=== PATIENT | male | born 1950 | race Caucasian/White ===

== ENCOUNTER → 2017-04-01 | Outpatient (CLI) | payer BC ==
[~2017-04-01] MED LIST: FLV400 PO; TMPOPS15 IO
[2017-04-01 16:58] LABS: HEMATOCRIT 43.2 % (42-52); MEAN CELL VOLUME 95.4 fL (80-100); MEAN CORPUSCULAR HEMOGLOBIN 32.9 pg (25-34); MEAN CORPUSCULAR HGB CONC 34.5 g/dl (32-36); PLATELET COUNT 183 K/uL (130-400); RED BLOOD COUNT 4.53 M/uL (4.7-6.1); WHITE BLOOD COUNT 7.88 K/uL (4.8-10.8)
== END | disposition home or self-care (01) ==
LOC: C.LABBC 14:32
PROVIDERS: ATTEND Internal Medicine
DX: Z00.00 Encounter for general adult medical examination without abnormal findings (principal); E72.11 Homocystinuria; Z11.59 Encounter for screening for other viral diseases

== ENCOUNTER 2017-08-02 13:06 | Inpatient (IN) | payer BC, OTHER ==
[~2017-08-02] VITALS: Ht 175.3 cm; Wt 98.5 kg
[~2017-08-02 13:06] MED LIST changes: -APIX1TAB3 PO; -ASPI325T39 PO; -TPRSR/50 PO
[2017-08-02] MEDS ORDERED: SODIUM CHLORIDE 0.9% 1000ML 2,000 ML IV STA (13:15)
[2017-08-02 13:53] LABS: BASO % 0.4 %; BASO ABS # 0.02 K/uL (0-0.2); EOS % 2.1 %; EOS ABS # 0.11 K/uL (0-0.5); HEMATOCRIT 46.2 % (42-52); HEMOGLOBIN 16.1 g/dL (14.0-18.0); IG# 0.01 K/uL (0.00-0.02); LYMPH % 23.5 %; LYMPH ABS # 1.23 K/uL (1.2-3.4); MEAN CORPUSCULAR HEMOGLOBIN 33.5 pg (25-34); MEAN CORPUSCULAR HGB CONC 34.8 g/dl (32-36); MEAN PLATELET VOLUME 9.6 fL (7.4-10.4); MONO % 9.9 %; MONO ABS # 0.52 K/uL (0.11-0.59); NEUT % 63.9 %; NEUT ABS # 3.35 K/uL (1.4-6.5); PLATELET COUNT 160 K/uL (130-400); RED CELL DISTRIBUTION WIDTH CV 13.8 % (11.5-14.5); RED CELL DISTRIBUTION WIDTH SD 48.7 fL (36.4-46.3); WHITE BLOOD COUNT 5.24 K/uL (4.8-10.8)
--- NOTE | 2017-08-02 13:53 | DIAGNOSTIC IMAGING REPORT ---
CHEST ONE VIEW PORTABLE HISTORY: Atypical Chest Pain COMPARISON: Chest 12/11/2014. FINDINGS: The lungs are clear. Cardiac silhouette is normal in size. No pleural effusions. No pneumothorax. IMPRESSION: No acute process. Electronically signed by: César Mendoza M.D. 08/02/2017 1:51 PM Dictated Date/Time: 08/02/2017 1:49 PM
[2017-08-02 14:10] LABS: BLOOD UREA NITROGEN 11 mg/dl (7-18); CALCIUM 9.2 mg/dl (8.5-10.1); CARBON DIOXIDE 27 mmol/L (21-32); GLUCOSE 95 mg/dl (70-99); POTASSIUM 3.7 mmol/L (3.5-5.1); SODIUM 138 mmol/L (136-145)
[2017-08-02 14:15] LABS: CKMB 2.2 ng/ml (0.5-3.6)
[2017-08-02] MEDS ORDERED: DILTIAZEM BOLUS / DRIP IV STA ×2 (14:35→18:21)
[2017-08-02] MEDS ORDERED: DILTIAZEM HCL INJ 125 MG in DEXTROSE 5% 100ML IV PRN ×2 (14:45→18:45)
[2017-08-02] MEDS ORDERED: ASPI325T39 PO (14:48)
[2017-08-02] MEDS ORDERED: DILTIAZEM BOLUS FROM BAG IV ONE (15:00)
[2017-08-02] MEDS ORDERED: ONDANSETRON INJ 2 MG/ML 2 ML VIAL IV PRN (16:30)
[2017-08-02] MEDS ORDERED: POLYETHYLENE (MIRALAX) 17 GM PACK PO PRN (16:30)
[2017-08-02] MEDS ORDERED: ENOXAPARIN 40 MG/0.4 ML SYR SC SCH ×2 (16:30→21:00)
[2017-08-02] MEDS ORDERED: ACETAMINOPHEN 325 MG TAB PO PRN (16:30)
--- NOTE | 2017-08-02 16:41 | History and Physical ---
History & Physical Date & Time of Service: Aug 02, 2017 at 16:34 Chief Complaint: new onset AF Primary Care Physician: Kerrie Mcdaniels M.D. History of Present Illness Source: patient, family This is a 67 yo M with PMHx of HTN, HLD, homocysteinemia w hx of DVT on b12 and folic acid, etoh use of 3 drinks daily, remote smoking hx 31 yrs ago with 1 pppd x 10 yrs.. The patient reports being here for a routine colonoscopy with Dr. Hunt. At that time his vitals were checked and noted to have high rate, and EKG was conducted showing afib with RVR with max HR in the 160s. The patient was sent to the ER for management. He is asymptomatic and denies any acute complaints other than being hungry. He denies any other cardiac history. PT does not take blood thinner with his hx of homocysteinemia. He routinely exercises with cardio/weights/resistance training for 30-45 min daily. EKG showing afib with RVR with rate in 110s-120s, was placed on a diltiazem bolus/gtt. CBC and PRP are WNL. Past Medical/Surgical History Medical Problems: (1) DVT (deep venous thrombosis) (2) HLD (hyperlipidemia) (3) Homocysteinemia (4) HTN, goal below 140/80 (5) new onset afib with rvr Social History Smoking Status: Former Smoker Smokeless Tobacco Use: No Alcohol Use: heavy (3 liquor drinks daily) Drug Use: none Marital Status: Housing status: lives with family Occupational Status: retired Immunizations History of Influenza Vaccine: Yes Influenza Vaccine Date: May 29, 2006 History of Tetanus Vaccine?: Yes History of Pneumococcal: No History of Hepatitis B Vaccine: No Multi-Drug Resistant Organisms History of MDRO: No Allergies Coded Allergies: No Known Allergies (Verified , 08/02/17) Home Medications Scheduled Acetylcysteine (Nutrient) (T-Gdewgo-D-Cysteine), 1 CAP PO DAILY Arginine (L-Arginine), 1 CAP PO DAILY Ascorbic Acid (Vitamin C), 1 TAB PO DAILY Aspirin (Aspirin Ec), 325 MG PO HS B-Complex Vitamins (Vitamin B Complex), 1 TAB PO DAILY Cholecalciferol (Vitamin D), 1,000 INTER.UNIT PO BID Coenzyme Q10 (Ubidecarenone) (Co Q10), 1 TAB PO DAILY Cyanocobalamin (Vitamin B-12), 1,000 MCG PO DAILY Ferrous Sulfate (Iron), 1 TAB PO DAILY Fish Oil ([place]-3), 1 CAP PO DAILY Folic Acid (Folvite), 1 MG PO DAILY Niacin (Niacin), 50 MG PO BID Selenium-Yeast (Selenium), 1 TAB PO DAILY Review of Systems Constitutional: No fever, No chills, No sweats, No weight loss, No weakness Eyes: No redness, No diplopia ENT: No sore throat Respiratory: No cough, No sputum, No wheezing, No shortness of breath, No dyspnea on exertion Cardiovascular: No chest pain, No orthopnea, No edema, No palpitations Abdomen: No pain, No nausea, No vomiting, No diarrhea Musculoskeletal: No joint pain, No swelling Neurologic: No memory loss, No numbness/tingling Psychiatric: No depression symptoms, No anxiety Endocrine: No fatigue Integumentary: No rash, No itch Physical Exam Vital Signs Date Time Temp Pulse Resp B/P (MAP) Pulse Ox O2 Delivery O2 Flow Rate FiO2 08/02/17 15:30 94 16 139/96 97 Room Air 08/02/17 15:11 104 20 151/99 98 Room Air 08/02/17 13:17 104 08/02/17 13:13 97 Room Air 08/02/17 13:13 97 Room Air 08/02/17 13:13 37.3 111 20 181/112 97 Room Air General Appearance: WD/WN, no apparent distress, + obese Head: normocephalic, atraumatic Eyes: PERRL, EOMI ENT: hearing grossly normal, pharynx normal Neck: supple, no adenopathy, no JVD Respiratory/Chest: chest non-tender, lungs clear, no respiratory distress, no accessory muscle use Cardiovascular: regular rate, rhythm, no murmur, normal peripheral pulses Abdomen/GI: normal bowel sounds, non tender, soft Back: normal inspection, no CVA tenderness Extremities/Musculoskelatal: normal inspection, no calf tenderness, no pedal edema Neurologic/Psych: alert, normal mood/affect, oriented x 3 Skin: normal color, warm/dry Diagnostics Laboratory Results Results Past 24 Hours Test 08/02/17 13:30 Range/Units White Blood Count 5.24 4.8-10.8 K/uL Red Blood Count 4.81 4.7-6.1 M/uL Hemoglobin 16.1 14.0-18.0 g/dL Hematocrit 46.2 42-52 % Mean Corpuscular Volume 96.0 80-100 fL Mean Corpuscular Hemoglobin 33.5 25-34 pg Mean Corpuscular Hemoglobin Concent 34.8 32-36 g/dl Platelet Count 160 130-400 K/uL Mean Platelet Volume 9.6 7.4-10.4 fL Neutrophils (%) (Auto) 63.9 % Lymphocytes (%) (Auto) 23.5 % Monocytes (%) (Auto) 9.9 % Eosinophils (%) (Auto) 2.1 % Basophils (%) (Auto) 0.4 % Neutrophils # (Auto) 3.35 1.4-6.5 K/uL Lymphocytes # (Auto) 1.23 1.2-3.4 K/uL Monocytes # (Auto) 0.52 0.11-0.59 K/uL Eosinophils # (Auto) 0.11 0-0.5 K/uL Basophils # (Auto) 0.02 0-0.2 K/uL RDW Standard Deviation 48.7 36.4-46.3 fL RDW Coefficient of Variation 13.8 11.5-14.5 % Immature Granulocyte % (Auto) 0.2 % Immature Granulocyte # (Auto) 0.01 0.00-0.02 K/uL Sodium Level 138 136-145 mmol/L Potassium Level 3.7 3.5-5.1 mmol/L Chloride Level 104 98-107 mmol/L Carbon Dioxide Level 27 21-32 mmol/L Anion Gap 7.0 3-11 mmol/L Blood Urea Nitrogen 11 7-18 mg/dl Creatinine 0.80 0.60-1.40 mg/dl Est Creatinine Clear Calc Drug Dose 106.6 ml/min Estimated GFR () 108.7 Estimated GFR (Non- 93.7 BUN/Creatinine Ratio 14.2 10-20 Random Glucose 95 70-99 mg/dl Calcium Level 9.2 8.5-10.1 mg/dl Total Creatine Kinase 96 39-308 U/L Creatine Kinase MB 2.2 0.5-3.6 ng/ml Creatine Kinase MB Ratio 2.3 0-3.0 Troponin I < 0.015 0-0.045 ng/ml Diagnostic Radiology CHEST ONE VIEW PORTABLE HISTORY: Atypical Chest Pain COMPARISON: Chest 12/11/2014. FINDINGS: The lungs are clear. Cardiac silhouette is normal in size. No pleural effusions. No pneumothorax. IMPRESSION: No acute process. Electronically signed by: César Mendoza M.D. 08/02/2017 1:51 PM Dictated Date/Time: 08/02/2017 1:49 PM The status of this report is Signed. EKG Atrial fibrillation with rapid ventricular response Left axis deviation Low voltage QRS Possible Inferior infarct (cited on or before 02-AUG-2017) Cannot rule out Anterior infarct , age undetermined Abnormal ECG Vent. rate 106 BPM SC interval * ms QRS duration 88 ms QT/QTc 292/387 ms P-R-T axes * -31 5 Impression Assessment and Plan This is a 67 yo M with PMHx of HTN, HLD, homocysteinemia w hx of DVT on b12 and folic acid, etoh use of 3 drinks daily, remote smoking hx 31 yrs ago with 1 pppd x 10 yrs.. The patient reports being here for a routine colonoscopy with Dr. Hunt. At that time his vitals were checked and noted to have high rate, and EKG was conducted showing afib with RVR with max HR in the 160s. New onset Afib with RVR - Admit to tele - Continue on cardizem gtt which was started in the ER - Not on any antihypertensives for hx of HTN - this has been diet and exercise controlled - Cardiology consult for new onset - Initial troponin neg, trend x 2 more sets - Check echocardiogram - Pt allowed heart healthy diet - colonoscopy will need to be rescheduled as outpt Homocysteinemia - Cont B12 and folic acid HLD - Continue with diet therapy, check lipid panel with am labs DVT ppx: lovenox, teds, scds CODE STATUS: FULL code Disposition: From home, lives with . Level of Care Telemetry Resuscitation Status FULL RESUSCITATION VTE Prophylaxis VTE Risk Assessment Done? Y/N: Yes Risk Level: Low Given or contraindicated: Enoxaparin (Lovenox)SQ, T.E.D. Stockings, SCD's Reviewed: Pt Seen/Exam by Me History Physician Microscopist Supervision Note: I interviewed and examined the patient. Discussed with MARIA DE JESUS Jack and agree with findings and plan as documented in the note. Any exceptions or clarifications are listed here: Patient admitted after incidental finding of rapid atrial fibrillation when he arrived for his routine colonoscopy today. EKG was performed by anesthesiology and found to be in rapid A. fib. The patient denies any heart palpitations, no shortness of breath or chest pain. No prior history of atrial fibrillation. He does have history of hypertension for which he was previously on medication, but it was Discontinued by his PCP a few years back. He was hypertensive on arrival, but blames that on the stress of the situation. He does note that at his doctor's office, he has been noted to have an elevated heart rate in the past, but was not told that he had atrial fibrillation. He denies any history of significant bleeding except for occasional blood from hemorrhoids. Vitals reviewed NAD, AAO 3 Irregularly irregular, normal rate at the time I saw him, no MGR Lungs clear to auscultation bilaterally, no wheezes crackles or rhonchi Abdomen positive bowel sounds soft nontender nondistended no abdominal bruits Extremities no edema, 2+ dorsalis pedis pulses Laboratory values reviewed ECG reviewed with rapid atrial fibrillation, no acute ischemic changes Chest x-ray normal 67-year-old male with history of hypertension, hyper-homocystinemia with DVT, hyperlipidemia, here with new onset rapid atrial fibrillation. This possibly could've been triggered by his recent bowel prep/dehydration, however he was noted to be tachycardic in the office back in May 2017 as well. -his [id number] score = 2 given age and HTN history which gives him a 2.9% annual risk of TIA/CVA/thromboembolism and he should be anticoagulated -We will increase Lovenox to 1 mmg/kg SQ every 12h for now, and decide upon further anticoagulation after consultation with cardiology tomorrow -Check echocardiogram -Continue diltiazem drip started in the ER, will likely switch to by mouth AV agatha blocking agent in the morning -Appreciate cardiology consult as to whether to rate control, rhythm control, and evaluation for cardioversion if he does not convert Documented By: Daxa Mueller
[2017-08-02 18:05] VITALS: BP 144/76; PULSE 96; TEMP 37.2; O2SAT 96; Ht 175.3 cm; Wt 98.5 kg
[2017-08-02 18:26] LABS: INR 1.1 (0.9-1.1); PTT PATIENT 24.5 SECONDS (21.0-31.0)
[2017-08-02 19:28] VITALS: BP 122/74; PULSE 98; TEMP 36.5; O2SAT 96
--- NOTE | 2017-08-02 19:28 | EMERGENCY ROOM VISIT NOTE ---
History Report prepared by Didi: Blake Mcmillan Under the Supervision of: Dr. Merrick Ybarra D.O. First contact with patient: 13:07 Chief Complaint: CARDIAC ASSESSMENT Stated Complaint: new onset AF History of Present Illness The patient is a 67 year old male who presents to the Emergency Room with complaints of new onset atrial fibrillation. He was receiving a colonoscopy when he was found to have an persistent irregular heart rhythm. His heart rate was found to be in the 130's as well. The patient had his colonoscopy for two bouts of abnormal diarrhea. His most recent colonoscopy was a few years ago which was normal. Pt denies headache, change in vision, fevers, chest pain, shortness of breath, nausea, vomiting, pain with urination, and melena. He has no history of A-fib. He has a previous history of DVT five years ago, but is not on chronic blood thinners. Source of History: patient Onset: Just prior to arrival Symptom Intensity: heart rate in 130's Quality: other (New onset A-fib) Timing: other (persistent) Associated Symptoms: + diarrhea, No fevers, No headache, No chest pain, No SOB, No nausea, No vomiting, No urinary symptoms Review of Systems See HPI for pertinent positives & negatives. A total of 10 systems reviewed and were otherwise negative. Past Medical & Surgical Medical Problems: (1) DVT (deep venous thrombosis) (2) HLD (hyperlipidemia) (3) Homocysteinemia (4) HTN, goal below 140/80 (5) new onset afib with rvr Family History No pertinent family history stated. Social History Smoking Status: Former Smoker Marital Status: Current/Historical Medications Scheduled Acetylcysteine (Nutrient) (L-Krlsqo-X-Cysteine), 1 CAP PO DAILY Arginine (L-Arginine), 1 CAP PO DAILY Ascorbic Acid (Vitamin C), 1 TAB PO DAILY Aspirin (Aspirin Ec), 325 MG PO HS B-Complex Vitamins (Vitamin B Complex), 1 TAB PO DAILY Cholecalciferol (Vitamin D), 1,000 INTER.UNIT PO BID Coenzyme Q10 (Ubidecarenone) (Co Q10), 1 TAB PO DAILY Cyanocobalamin (Vitamin B-12), 1,000 MCG PO DAILY Ferrous Sulfate (Iron), 1 TAB PO DAILY Fish Oil ([place]-3), 1 CAP PO DAILY Folic Acid (Folvite), 1 MG PO DAILY Niacin (Niacin), 50 MG PO BID Selenium-Yeast (Selenium), 1 TAB PO DAILY Allergies Coded Allergies: No Known Allergies (Verified , 08/02/17) Physical Exam Vital Signs Date Time Temp Pulse Resp B/P (MAP) Pulse Ox O2 Delivery O2 Flow Rate FiO2 08/02/17 15:30 94 16 139/96 97 Room Air 08/02/17 15:11 104 20 151/99 98 Room Air 08/02/17 13:17 104 08/02/17 13:13 97 Room Air 08/02/17 13:13 97 Room Air 08/02/17 13:13 37.3 111 20 181/112 97 Room Air Physical Exam GENERAL: Sitting up in bed, alert, well appearing, well nourished, no distress, non-toxic EYE EXAM: normal conjunctiva. PERRL and EOM's intact. OROPHARYNX: no exudate, no erythema, lips, buccal mucosa, and tongue normal and mucous membranes are moist NECK: supple, no nuchal rigidity, no adenopathy, non-tender LUNGS: Clear to auscultation. Normal chest wall mechanics HEART: Tachycardic rate with an irregularly irregular rhythm. No murmurs, S1 normal and S2 normal ABDOMEN: abdomen soft, non-tender, normo-active bowel sounds, no masses, no rebound or guarding. BACK: Back is symmetrical on inspection and there is no deformity, no midline tenderness, no CVA tenderness. SKIN: no rashes and no bruising UPPER EXTREMITIES: upper extremities are grossly normal. LOWER EXTREMITIES: Calves are equal bilaterally. NEURO EXAM: Normal sensorium, cranial nerves II-XII grossly intact, normal speech, no gross weakness of arms, no gross weakness of legs. Medical Decision & Procedures ER Provider Diagnostic Interpretation: Radiology results as stated below per my review and the radiologist's interpretation: CHEST ONE VIEW PORTABLE FINDINGS: The lungs are clear. Cardiac silhouette is normal in size. No pleural effusions. No pneumothorax. IMPRESSION: No acute process. Electronically signed by: César Mendoza M.D. 08/02/2017 1:51 PM Laboratory Results 08/02/17 13:30 Red Blood Count 4.81, Mean Corpuscular Volume 96.0, Mean Corpuscular Hemoglobin 33.5, Mean Corpuscular Hemoglobin Concent 34.8, Mean Platelet Volume 9.6, Neutrophils (%) (Auto) 63.9, Lymphocytes (%) (Auto) 23.5, Monocytes (%) (Auto) 9.9, Eosinophils (%) (Auto) 2.1, Basophils (%) (Auto) 0.4, Neutrophils # (Auto) 3.35, Lymphocytes # (Auto) 1.23, Monocytes # (Auto) 0.52, Eosinophils # (Auto) 0.11, Basophils # (Auto) 0.02 08/02/17 13:30 Test 08/02/17 13:30 White Blood Count 5.24 K/uL (4.8-10.8) Red Blood Count 4.81 M/uL (4.7-6.1) Hemoglobin 16.1 g/dL (14.0-18.0) Hematocrit 46.2 % (42-52) Mean Corpuscular Volume 96.0 fL (80-100) Mean Corpuscular Hemoglobin 33.5 pg (25-34) Mean Corpuscular Hemoglobin Concent 34.8 g/dl (32-36) Platelet Count 160 K/uL (130-400) Mean Platelet Volume 9.6 fL (7.4-10.4) Neutrophils (%) (Auto) 63.9 % Lymphocytes (%) (Auto) 23.5 % Monocytes (%) (Auto) 9.9 % Eosinophils (%) (Auto) 2.1 % Basophils (%) (Auto) 0.4 % Neutrophils # (Auto) 3.35 K/uL (1.4-6.5) Lymphocytes # (Auto) 1.23 K/uL (1.2-3.4) Monocytes # (Auto) 0.52 K/uL (0.11-0.59) Eosinophils # (Auto) 0.11 K/uL (0-0.5) Basophils # (Auto) 0.02 K/uL (0-0.2) RDW Standard Deviation 48.7 fL (36.4-46.3) RDW Coefficient of Variation 13.8 % (11.5-14.5) Immature Granulocyte % (Auto) 0.2 % Immature Granulocyte # (Auto) 0.01 K/uL (0.00-0.02) Prothrombin Time 11.4 SECONDS (9.0-12.0) Prothromb Time International Ratio 1.1 (0.9-1.1) Activated Partial Thromboplast Time 24.5 SECONDS (21.0-31.0) Partial Thromboplastin Ratio 0.9 Anion Gap 7.0 mmol/L (3-11) Est Creatinine Clear Calc Drug Dose 106.6 ml/min Estimated GFR () 108.7 Estimated GFR (Non- 93.7 BUN/Creatinine Ratio 14.2 (10-20) Calcium Level 9.2 mg/dl (8.5-10.1) Total Creatine Kinase 96 U/L (39-308) Creatine Kinase MB 2.2 ng/ml (0.5-3.6) Creatine Kinase MB Ratio 2.3 (0-3.0) Troponin I < 0.015 ng/ml (0-0.045) Triglycerides Level 70 mg/dl (0-150) Cholesterol Level 260 mg/dl (0-200) HDL Cholesterol 124 mg/dl LDL Cholesterol, Calculated 122 mg/dl VLDL Cholesterol, Calculated 14 mg/dl Cholesterol/HDL Ratio 2.1 Laboratory results per my review. Medications Administered Medications (Trade) Dose Ordered Sig/Roxy Route Start Time Stop Time Status Last Admin Dose Admin Sodium Chloride 2,000 ml @ 999 mls/hr Q2H1M STAT IV 08/02/17 13:15 08/02/17 15:15 DC 08/02/17 13:36 999 MLS/HR Diltiazem HCl (Cardizem Bolus From Bag) 10 mg ONE ONCE IV 08/02/17 15:00 08/02/17 15:02 DC 08/02/17 15:00 5 MG Diltiazem HCl 125 mg/Dextrose 125 ml @ 0 mls/hr Q0M PRN IV 08/02/17 14:45 08/02/17 18:34 DC 08/02/17 15:10 5 MLS/HR ECG Indication: other (new onset A-fib) Rate (beats per minute): 106 Rhythm: atrial fibrillation (RVR) Findings: left axis deviation, no ectopy ED Course ED COURSE: Vital signs were reviewed and showed hypertension The patients medical record was reviewed The above diagnostic studies were performed and reviewed. ED treatments and interventions as stated above. 1308: The patient was evaluated in room C2B. A complete history and physical examination was performed. 1315: Ordered Sodium Chloride 2000 ml @ 999 mls/hr IV. 1433: I reassessed the patient. His heart rate has increased from 105 to 150 bpm. 1440: Upon reevaluation, the patient is resting comfortably. I discussed my findings with the patient and he understands and agrees with the treatment plan. Based on the patients age, coexisting illnesses, exam and lab findings the decision to treat as an inpatient was made. The patient remained stable while under my care. The patient will be evaluated for further management. Medical Decision Differential Diagnosis includes but is not limited to dehydration, stroke, anemia, hypoglycemia, hyponatremia, hypernatremia, urinary tract infection, pneumonia, bronchitis, sepsis, gastroenteritis, additional abdominal pathology, metabolic abnormalities and infections. Patient is a 67-year-old female who presents to ER referred in by anesthesia as he was set to have a colonoscopy. He was found to be in A. fib with RVR. He has no complaints. On evaluation his heart rate goes from 110s to 150s. EKG shows no ischemia. He is asymptomatic. Uncertain of how long this has been present for question if secondary to bowel prep. Patient was given 2 L normal saline. Heart rate did trend down but was still fairly variable. At this time he is placed on Cardizem drip and given a bolus. Following this heart rate remained in the low 100s. Discussed with internal medicine. Patient was admitted with A. fib and RVR. Medication Reconcilliation Current Medication List: was personally reviewed by me Blood Pressure Screening Patient's blood pressure: Elevated blood pressure Blood pressure disposition: Referred to PCP Consults Time Called: 1440 Consulting Physician: Dr. Ervin GODINEZ Hospitalist Returned Call: [phone] I reviewed the patient's case with Dr. Mueller. BOBBI will evaluate the patient for further management. Impression Primary Impression: Atrial fibrillation with rapid ventricular response Critical Care I have personally spent 35 minutes of critical care time in the direct management of this patient. This includes bedside care, interpretation of diagnostic studies, and testing, discussion with consultants, patient, and family members, and other required patient management activities. This 35 minutes is in excess of all separately billable procedures. Scribe Attestation The scribe's documentation has been prepared under my direction and personally reviewed by me in its entirety. I confirm that the note above accurately reflects all work, treatment, procedures, and medical decision making performed by me. Departure Information Dispostion Being Evaluated By Hospitalist Referrals Kerrie Mcdaniels M.D. (PCP) Patient Instructions My [facility]
[2017-08-02] MEDS: CHOLECALCIFEROL 1000 INTER.UNIT TAB PO SCH (20:38)
[2017-08-02] MEDS ORDERED: ENOXAPARIN 60 MG/0.6 ML SYR SQ ONE (23:45)
[2017-08-03 00:12] VITALS: BP 137/81; PULSE 72; TEMP 36.8; O2SAT 97
[2017-08-03 03:33] VITALS: BP 141/76; PULSE 86; TEMP 37; O2SAT 94
[2017-08-03 05:30] LABS: BASO % 0.2 %; BASO ABS # 0.01 K/uL (0-0.2); EOS ABS # 0.15 K/uL (0-0.5); HEMATOCRIT 42.6 % (42-52); HEMOGLOBIN 14.9 g/dL (14.0-18.0); IG# 0.01 K/uL (0.00-0.02); LYMPH % 27.9 %; LYMPH ABS # 1.41 K/uL (1.2-3.4); MEAN CELL VOLUME 96.8 fL (80-100); MEAN CORPUSCULAR HEMOGLOBIN 33.9 pg (25-34); MEAN PLATELET VOLUME 9.4 fL (7.4-10.4); MONO % 11.9 %; NEUT % 56.8 %; NEUT ABS # 2.87 K/uL (1.4-6.5); PLATELET COUNT 148 K/uL (130-400); RED CELL DISTRIBUTION WIDTH CV 13.7 % (11.5-14.5); RED CELL DISTRIBUTION WIDTH SD 48.9 fL (36.4-46.3); WHITE BLOOD COUNT 5.05 K/uL (4.8-10.8)
[2017-08-03 06:08] LABS: BLOOD UREA NITROGEN 13 mg/dl (7-18); CALCIUM 8.6 mg/dl (8.5-10.1); CARBON DIOXIDE 27 mmol/L (21-32); CREATININE 0.84 mg/dl (0.60-1.40); GLUCOSE 94 mg/dl (70-99); POTASSIUM 3.7 mmol/L (3.5-5.1); SODIUM 141 mmol/L (136-145)
[2017-08-03 07:30] VITALS: BP 124/77; PULSE 87; TEMP 37; O2SAT 95
[2017-08-03] MEDS: CHOLECALCIFEROL 1000 INTER.UNIT TAB PO SCH (07:44)
[2017-08-03] MEDS ORDERED: ENOXAPARIN 100 MG/1ML SYR SQ SCH (08:00)
--- NOTE | 2017-08-03 08:41 | ECHOCARDIOGRAM REPORT ---
*NOTICE TO RECEIVING [facility] This information is strictly Confidential and protected under [place] law. [place] law prohibits you from making any further disclosure of this information unless further disclosure is expressly permitted by the written consent of the person to whom it pertains or is authorized by law. A general authorization for the release of medical or other information is not sufficient for this purpose. Hospital accepts no responsibility if the information is made available to any other person, INCLUDING THE PATIENT. Interpretation Summary * Name: SHANE KAUFFMAN Study Date: 08/03/2017 06:35 AM BP: 141/76 mmHg * Patient Location: C.2T\S\S242\S\2 HR: 86 * : 1950 (M/d/yyyy) Gender: Male Height: 69 in * Age: 67 yrs Ethnicity: CA Weight: 217 lb * Ordering Physician: Collette Elizabeth * Referring Physician: Self, Referred * Performed By: Lola Frazier RDCS * * Reason For Study: Atrial Fibrillation * BSA: 2.1 m2 * -- Conclusions -- * There is mild concentric left ventricular hypertrophy. * Left ventricular systolic function is normal. * The left atrium is moderately dilated. Procedure Details * A complete two-dimensional transthoracic echocardiogram was performed (2D, M-mode, Doppler and color flow Doppler). Left Ventricle * The left ventricle is normal in size. * There is mild concentric left ventricular hypertrophy. * Ejection Fraction = 50-55%. * Left ventricular systolic function is normal. * The left ventricular wall motion is normal. Right Ventricle * The right ventricle is normal in size and function. * The right ventricular systolic function is normal as assessed by tricuspid annular plane systolic excursion (TAPSE) (normal >1.5 cm). Atria * The left atrium is moderately dilated. * Right atrial size is normal. Mitral Valve * The mitral valve anatomy is normal. * There is no mitral regurgitation noted. Tricuspid Valve * The tricuspid valve is not well visualized, but is grossly normal. * Significant tricuspid regurgitation is absent. Aortic Valve * The aortic valve is normal in structure and function. * No hemodynamically significant valvular aortic stenosis. * Trace aortic regurgitation. Great Vessels * The aortic root is normal size. Pericardium/Pleural * There is no pericardial effusion. MMode 2D Measurements and Calculations IVSd 1.6 cm IVSs 1.8 cm LVIDd 3.8 cm LVIDs 2.8 cm LVPWd 1.4 cm LVPWs 1.5 cm IVS/LVPW 1.1 FS 27.1 % EDV(Teich) 63.8 ml ESV(Teich) 29.7 ml EF(Teich) 53.5 % EDV(cubed) 56.9 ml ESV(cubed) 22.1 ml EF(cubed) 61.3 % % IVS thick 16.2 % % LVPW thick 11.1 % LV mass(C)d 209.1 grams LV mass(C)dI 97.8 grams/m\S\2 LV mass(C)s 171.9 grams LV mass(C)sI 80.4 grams/m\S\2 SV(Teich) 34.1 ml SI(Teich) 16.0 ml/m\S\2 SV(cubed) 34.9 ml SI(cubed) 16.3 ml/m\S\2 Ao root diam 3.6 cm Ao root area 10.1 cm\S\2 ACS 1.9 cm LA dimension 4.7 cm LA/Ao 1.3 LVAd ap4 28.0 cm\S\2 LVLd ap4 8.4 cm EDV(MOD-sp4) 79.0 ml EDV(sp4-el) 79.5 ml LVAs ap4 16.7 cm\S\2 LVLs ap4 6.9 cm ESV(MOD-sp4) 33.6 ml ESV(sp4-el) 34.2 ml EF(MOD-sp4) 57.5 % EF(sp4-el) 57.0 % LVAd ap2 27.7 cm\S\2 LVLd ap2 8.1 cm EDV(MOD-sp2) 79.9 ml EDV(sp2-el) 79.9 ml LVAs ap2 18.8 cm\S\2 LVLs ap2 7.5 cm ESV(MOD-sp2) 42.1 ml ESV(sp2-el) 39.6 ml EF(MOD-sp2) 47.3 % EF(sp2-el) 50.4 % LVLd %diff -2.73 % EDV(MOD-bp) 81.0 ml LVLs %diff 7.8 % ESV(MOD-bp) 38.5 ml EF(MOD-bp) 52.5 % SV(MOD-sp4) 45.4 ml SI(MOD-sp4) 21.2 ml/m\S\2 SV(MOD-sp2) 37.8 ml SI(MOD-sp2) 17.7 ml/m\S\2 SV(MOD-bp) 42.5 ml SI(MOD-bp) 19.9 ml/m\S\2 SV(sp4-el) 45.3 ml SI(sp4-el) 21.2 ml/m\S\2 SV(sp2-el) 40.2 ml SI(sp2-el) 18.8 ml/m\S\2 Doppler Measurements and Calculations MV E max sugar 105.4 cm/sec MV dec time 0.20 sec Ao V2 max 101.4 cm/sec Ao max PG 4.1 mmHg Ao max PG (full) 1.2 mmHg AI max sugar 167.6 cm/sec AI max PG 11.2 mmHg AI dec slope 50.6 cm/sec\S\2 AI P1/2t 969.0 msec LV V1 max PG 3.0 mmHg LV V1 max 86.0 cm/sec PA V2 max 84.1 cm/sec PA max PG 2.8 mmHg
[2017-08-03] MEDS ORDERED: ASCORBIC ACID 500 MG TAB PO SCH (09:00)
[2017-08-03] MEDS ORDERED: FERROUS SULFATE 325 MG TAB PO SCH (09:00)
--- NOTE | 2017-08-03 09:46 | Cardiology Consultation ---
Cardiology Consultation Date of Consultation: Aug 03, 2017. Requesting Physician: Dr. Elizabeth Reason for Consultation: New-onset atrial fibrillation Pt evaluation today including: conversation w/ patient, physical exam, lab review, review of studies, review of inpatient medication list, conversation w/ attending History of Present Illness This is a very pleasant 67-year-old gentleman who has a history of hypertension , hyperlipidemia and a history of DVT. He has remote smoking history. He presented for a routine colonoscopy and it was noted that his heart rate was somewhat elevated and electrocardiogram showed atrial fibrillation. He was then sent to the emergency room. He was completely asymptomatic. He is not taking any medications for his hypertension, in the past he had been on lisinopril but he prefers not to take medications if possible. He did have a stress echo done in 2008 for what is described as family history of coronary disease and that was unremarkable. He was admitted, he is placed on intravenous diltiazem for rate control and Lovenox as an anticoagulant. Echocardiography has been performed which shows normal left ventricular function with some left ventricular hypertrophy. At the time my evaluation this morning he was feeling well, he has had no symptoms of palpitations although when he concentrates on his rhythm he thinks he can feel any irregularity. He does note that on his last 2 visits to the office that his heart rate was elevated however an electric cardiogram was not done. I did review the office records and he was seen 04/01/2017 and 06/16/2017 and his heart rates were between 90 and little over 100 on those visits, prior to that his heart rates were typically in the 60s. It is likely his arrhythmia occurred some time before March 2017, a prior visit 09/10/2016 showed the lower heart rates and was probably not present on that visit. He has no other cardiovascular symptoms, he does not have exertional chest discomfort, no orthopnea or PND and no edema. Past Medical/Surgical History (1) DVT (deep venous thrombosis) (2) Homocysteinemia (3) HLD (hyperlipidemia) (4) HTN, goal below 140/80 Social History Smoking Status: Former Smoker History of Alcohol Use: Yes (Whiskey, beer 2 drinks per day) Review of Systems Constitutional: No fever, No weight loss, No weakness Respiratory: No cough, No wheezing, No shortness of breath, No dyspnea on exertion Cardiac: No chest pain, No orthopnea, No PND, No edema, No palpitations Abdomen: No pain, No nausea, No vomiting, No diarrhea, No GI bleeding Male : No urinary frequency, No nocturia more than once/night, No slowing stream, No sexual dysfunction Neurologic: No paralysis, No weakness, No numbness/tingling, No balance problems Heme: No abnormal bleeding/bruising, No clotting problems Endo: No fatigue Skin: No problem reported All Other Systems: Reviewed and Negative Allergies Coded Allergies: No Known Allergies (Verified , 08/02/17) Medications Current Inpatient Medications Medications (Trade) Dose Ordered Sig/Roxy Route Start Time Stop Time Status Last Admin Dose Admin Acetaminophen (Tylenol Tab) 650 mg Q4H PRN PO 08/02/17 16:30 09/01/17 16:29 Ondansetron HCl (Zofran Inj) 4 mg Q6H PRN IV 08/02/17 16:30 09/01/17 16:29 Polyethylene (Miralax Powder Packet) 17 gm DAILY PRN PO 08/02/17 16:30 09/01/17 16:29 Ascorbic Acid (Vitamin C Tab) 500 mg DAILY PO 08/03/17 09:00 09/02/17 08:59 08/03/17 07:44 500 MG Cholecalciferol (Vitamin D Tab) 1,000 inter.unit BID PO 08/02/17 21:00 09/01/17 20:59 08/03/17 07:44 1,000 INTER.UNIT Folic Acid (Folvite Tab) 1 mg DAILY PO 08/03/17 09:00 09/02/17 08:59 08/03/17 07:44 1 MG Ferrous Sulfate (Feosol Tab) 325 mg DAILY PO 08/03/17 09:00 09/02/17 08:59 08/03/17 07:44 325 MG Metoprolol Succinate (Toprol Xl Tab) 50 mg NOW STAT PO 08/03/17 09:31 08/03/17 09:32 UNV Apixaban (Eliquis Tab) 5 mg BID PO 08/03/17 21:00 09/02/17 20:59 UNV Physical Exam Vital Signs Past 12 Hours Date Time Temp Pulse Resp B/P (MAP) Pulse Ox O2 Delivery O2 Flow Rate FiO2 08/03/17 08:00 Room Air 1/17/18 07:30 37.0 87 16 124/77 (93) 95 Room Air 08/03/17 04:00 Room Air 08/03/17 03:33 37.0 86 19 141/76 (97) 94 Room Air 08/03/17 00:12 Room Air 08/03/17 00:12 36.8 72 18 137/81 (99) 97 Room Air Constitutional: General Apperance: heathly-appearing Level of Distress: NAD Psychiatric: Mental Status: active & alert Head: normocephalic Eyes: EOM: EOMI ENMT: normal ENT inspection, hearing grossly normal Neck: supple, no masses Lungs: Respiratory effort: no dyspnea, good air movement Auscultation: breath sounds normal, no wheezing Cardiovascular: Heart Auscultation: no murmurs, no rubs, no gallops, irregular rate rhythm Peripheral Pulses: Bruits: none appreciated Abdomen: Bowel Sounds: normal Inspection & Palpation: soft, no tenderness, guarding & rebound, no masses Musculoskeletal: normal strength (5/5 throughout) Extremities: no edema Neurologic: Cranial Nerves: grossly intact Sensation: grossly intact Data Laboratory Results: Last 24 Hours Test 08/02/17 13:30 08/02/17 21:33 08/03/17 05:17 White Blood Count 5.24 K/uL 5.05 K/uL Red Blood Count 4.81 M/uL 4.40 M/uL Hemoglobin 16.1 g/dL 14.9 g/dL Hematocrit 46.2 % 42.6 % Mean Corpuscular Volume 96.0 fL 96.8 fL Mean Corpuscular Hemoglobin 33.5 pg 33.9 pg Mean Corpuscular Hemoglobin Concent 34.8 g/dl 35.0 g/dl Platelet Count 160 K/uL 148 K/uL Mean Platelet Volume 9.6 fL 9.4 fL Neutrophils (%) (Auto) 63.9 % 56.8 % Lymphocytes (%) (Auto) 23.5 % 27.9 % Monocytes (%) (Auto) 9.9 % 11.9 % Eosinophils (%) (Auto) 2.1 % 3.0 % Basophils (%) (Auto) 0.4 % 0.2 % Neutrophils # (Auto) 3.35 K/uL 2.87 K/uL Lymphocytes # (Auto) 1.23 K/uL 1.41 K/uL Monocytes # (Auto) 0.52 K/uL 0.60 K/uL Eosinophils # (Auto) 0.11 K/uL 0.15 K/uL Basophils # (Auto) 0.02 K/uL 0.01 K/uL RDW Standard Deviation 48.7 fL 48.9 fL RDW Coefficient of Variation 13.8 % 13.7 % Immature Granulocyte % (Auto) 0.2 % 0.2 % Immature Granulocyte # (Auto) 0.01 K/uL 0.01 K/uL Prothrombin Time 11.4 SECONDS Prothromb Time International Ratio 1.1 Activated Partial Thromboplast Time 24.5 SECONDS Partial Thromboplastin Ratio 0.9 Sodium Level 138 mmol/L 141 mmol/L Potassium Level 3.7 mmol/L 3.7 mmol/L Chloride Level 104 mmol/L 105 mmol/L Carbon Dioxide Level 27 mmol/L 27 mmol/L Anion Gap 7.0 mmol/L 9.0 mmol/L Blood Urea Nitrogen 11 mg/dl 13 mg/dl Creatinine 0.80 mg/dl 0.84 mg/dl Est Creatinine Clear Calc Drug Dose 106.6 ml/min 101.5 ml/min Estimated GFR () 108.7 106.5 Estimated GFR (Non- 93.7 91.9 BUN/Creatinine Ratio 14.2 15.6 Random Glucose 95 mg/dl 94 mg/dl Calcium Level 9.2 mg/dl 8.6 mg/dl Total Creatine Kinase 96 U/L Creatine Kinase MB 2.2 ng/ml Creatine Kinase MB Ratio 2.3 Troponin I < 0.015 ng/ml < 0.015 ng/ml < 0.015 ng/ml Triglycerides Level 70 mg/dl Cholesterol Level 260 mg/dl HDL Cholesterol 124 mg/dl LDL Cholesterol, Calculated 122 mg/dl VLDL Cholesterol, Calculated 14 mg/dl Cholesterol/HDL Ratio 2.1 Imaging: Echocardiography shows normal left ventricular size and function, ejection fraction 50-55%. Mild concentric left ventricular hypertrophy. Moderate left atrial dilatation. No valvular abnormalities. EKG: Initial electrocardiography shows atrial fibrillation at a rate of 119 bpm , left axis deviation. A repeat electrocardiogram several hours later shows similar findings with a heart rate of 106 bpm. Telemetry reviewed: Atrial fibrillation with a rapid rate initially, quickly rate controlled and he remains in atrial fibrillation. Assessment & Plan #1. Atrial fibrillation: She has asymptomatic atrial fibrillation, based on records as noted in the history of present illness suspected started sometime in August and March 2017. I cannot pinpoint it closer than that with the data that I have. At this point I would use rate control and anticoagulation and I would plan to perform electrical cardioversion after around one month of anticoagulation. His chads-vasc score is 2, therefore I would tend to keep anticoagulation going long-term. I would like to use a beta jaxon for rate control (rather than diltiazem) due to his left ventricular hypertrophy and his hypertension. #2. Left ventricular hypertrophy: He does have left ventricular hypertrophy by echo, it is mild but is consistent with his left atrial enlargement and his hypertension. Hypertension is a likely cause of his left ventricular hypertrophy. #3. Hypertension: I think he should be on an antihypertensive but we can probably use beta-blockade for blood pressure and rate control and it may be beneficial for his left ventricular hypertrophy as well. I would continue this long-term even if we get him back into sinus rhythm for these other reasons. Thank you for allowing me to participate in his care.
[2017-08-03] MEDS ORDERED: METOPROLOL SUCC 50MG EXT REL TAB PO ONE (10:00)
[2017-08-03 11:43] VITALS: BP 118/85; PULSE 69; TEMP 36.6; O2SAT 97
[2017-08-03] MEDS ORDERED: TPRSR/50 PO (14:34)
[2017-08-03] MEDS ORDERED: APIX1TAB3 PO (14:34)
--- NOTE | 2017-08-03 14:45 | Discharge Instructions ---
Discharge Instructions Date of Service Aug 03, 2017. Admission Reason for Admission: New Onset Afib With Rvr Discharge Discharge Diagnosis / Problem: New onset atrial fibrillation with rapid ventricular response Discharge Goals Goal(s): Learn about illness, Diagnostic testing, Therapeutic intervention Activity Recommendations Activity Limitations: resume your previous activity . Instructions / Follow-Up Instructions / Follow-Up You were admitted to the hospital with an incidental finding of an irregular heart rhythm called atrial fibrillation. You were also found to have a rapid heart rate. You were initially treated with an IV medication called diltiazem to control your heart rate. You were then started on another rate control medication called metoprolol, and the IV drip was weaned off. As you are now rate controlled and asymptomatic, you are medically stable to be discharged home. Medications: *Take metoprolol succinate 50 mg by mouth daily. This is a rate control medication as well as a blood pressure medication. *Take apixaban (Eliquis) 5 mg by mouth twice a day. This a blood thinner, as atrial fibrillation increases your risk for stroke. *Continue your home medications as prescribed. Follow up: *You have been scheduled for a follow up appointment with Dr. Dasilva of cardiology on August 26 at 10:30 am. His office is at [address] [place] [address]. *You will also be scheduled to follow up with your primary care provider in about 1 week following discharge. Please seek medical attention if you experience fevers, chills, sweats, dizziness/lightheadedness, loss of consciousness, chest pain, palpitations, shortness of breath, nausea, vomiting, numbness or tingling. Current Hospital Diet Patient's current hospital diet: AHA Diet (Heart Healthy) Discharge Diet Recommended Diet: AHA Diet (Heart Healthy) Pending Studies Studies pending at discharge: no Laboratory Results Lipid Panel Test 08/02/17 13:30 Range/Units Triglycerides Level 70 0-150 mg/dl Cholesterol Level 260 H 0-200 mg/dl HDL Cholesterol 124 mg/dl Cholesterol/HDL Ratio 2.1 LDL Cholesterol, Calculated 122 mg/dl Medical Emergencies . Who to Call and When: Medical Emergencies: If at any time you feel your situation is an emergency, please call 911 immediately. . Non-Emergent Contact Non-Emergency issues call your: Primary Care Provider, Cloth Winding Supervisor Call Non-Emergent contact if: you have a fever, you have any medication questions . Past History Medical & Surgical History: (1) Atrial fibrillation with rapid ventricular response . "Provider Documentation" section prepared by Melisa Parikh. . VTE Core Measure Inpt VTE Proph given/why not?: Enoxaparin (Lovenox)SQ, T.E.D. Stockings, SCD's
[2017-08-03 14:50] VITALS: BP 118/85; PULSE 69; TEMP 36.6; O2SAT 97
--- NOTE | 2017-08-03 16:02 | Discharge Summary ---
Discharge Summary Date of Service Aug 03, 2017. Discharge Summary Admission Date: Aug 02, 2017 at 16:33 Discharge Date: Aug 03, 2017 Discharge Disposition: Home Principal Diagnosis: New onset a-fib with RVR Problems/Secondary Diagnoses: HTN, HLD, homocysteinemia with h/o DVT, ETOH use, remote smoking history Immunizations: Have You Had Influenza Vaccine: Yes Influenza Vaccine Date: May 29, 2006 History of Tetanus Vaccine?: Yes History of Pneumococcal: No History of Hepatitis B Vaccine: No Procedures: CHEST ONE VIEW PORTABLE HISTORY: Atypical Chest Pain COMPARISON: Chest 12/11/2014. FINDINGS: The lungs are clear. Cardiac silhouette is normal in size. No pleural effusions. No pneumothorax. IMPRESSION: No acute process. Echocardiogram: Interpretation Summary * Name: SHANE KAUFFMAN Study Date: 08/03/2017 06:35 AM BP: 141/76 mmHg * Patient Location: [facility]\S\S242\S\2 HR: 86 * : 1950 (M/d/yyyy) Gender: Male Height: 69 in * Age: 67 yrs Ethnicity: CA Weight: 217 lb * Ordering Physician: Collette Elizabeth * Referring Physician: Self, Referred * Performed By: Lola Frazier RDCS * * Reason For Study: Atrial Fibrillation * BSA: 2.1 m2 * -- Conclusions -- * There is mild concentric left ventricular hypertrophy. * Left ventricular systolic function is normal. * The left atrium is moderately dilated. Procedure Details * A complete two-dimensional transthoracic echocardiogram was performed (2D, M-mode, Doppler and color flow Doppler). Left Ventricle * The left ventricle is normal in size. * There is mild concentric left ventricular hypertrophy. * Ejection Fraction = 50-55%. * Left ventricular systolic function is normal. * The left ventricular wall motion is normal. Right Ventricle * The right ventricle is normal in size and function. * The right ventricular systolic function is normal as assessed by tricuspid annular plane systolic excursion (TAPSE) (normal >1.5 cm). Atria * The left atrium is moderately dilated. * Right atrial size is normal. Mitral Valve * The mitral valve anatomy is normal. * There is no mitral regurgitation noted. Tricuspid Valve * The tricuspid valve is not well visualized, but is grossly normal. * Significant tricuspid regurgitation is absent. Aortic Valve * The aortic valve is normal in structure and function. * No hemodynamically significant valvular aortic stenosis. * Trace aortic regurgitation. Great Vessels * The aortic root is normal size. Pericardium/Pleural * There is no pericardial effusion. Consultations: Cardiology Medication Reconciliation New Medications: Apixaban (Eliquis) 5 Mg Tab 5 MG PO BID for 30 Days, #60 TAB Metoprolol Succinate (Metoprolol Succinate ER) 50 Mg Tabcr 50 MG PO DAILY for 30 Days, #30 TABS Continued Medications: Acetylcysteine (Nutrient) (B-Dhermm-T-Cysteine) 600 Mg Cap 1 CAP PO DAILY Arginine (L-Arginine) 500 Mg Cap 1 CAP PO DAILY Ascorbic Acid (Vitamin C) 500 Mg Tab 1 TAB PO DAILY Aspirin (Aspirin Ec) 325 Mg Tab 325 MG PO HS B-Complex Vitamins (Vitamin B Complex) 1 Tab Tab 1 TAB PO DAILY Cholecalciferol (Vitamin D) 1,000 Unit Tab 1000 INTER.UNIT PO BID Coenzyme Q10 (Ubidecarenone) (Co Q10) 90 Mg Tab 1 TAB PO DAILY Cyanocobalamin (Vitamin B-12) 1,000 Mcg Tab 1000 MCG PO DAILY Ferrous Sulfate (Iron) 325 Mg Tab 1 TAB PO DAILY Fish Oil (Lindrith-3) 1 Ea Cap 1 CAP PO DAILY Folic Acid (Folvite) 1 Mg Tab 1 MG PO DAILY Niacin (Niacin) 50 Mg Tab 50 MG PO BID Selenium-Yeast (Selenium) 1 Tab Tab 1 TAB PO DAILY Discharge Exam Patient reports feeling well. He denies any palpitations, chest pain, shortness of breath, or fatigue. The patient denies fevers, chills, sweats, chest pain, palpitations, claudication, cough, wheezing, shortness of breath, nausea, vomiting, abdominal pain, dysuria, hematuria, urinary retention, paralysis, weakness, numbness and tingling. Constitutional: No fever, No chills, No sweats Eyes: No worsening of vision, No eye pain, No diplopia ENT: No hearing loss, No nasal symptoms, No trouble swallowing Respiratory: No cough, No wheezing, No shortness of breath Cardiovascular: No chest pain, No claudication, No palpitations Abdomen: No pain, No nausea, No vomiting Musculoskeletal: No joint pain, No muscle pain, No swelling Genitourinary - Male: No dysuria, No urinary retention, No hematuria Neurologic: No paralysis, No weakness, No numbness/tingling Integumentary: No rash, No itch, No color change General appearance: +Obese. Well-developed, well-nourished, no apparent distress Head: Normocephalic, atraumatic Eyes: Normal inspection, PERRL, EOMI ENT: Normal ENT inspection, hearing grossly normal, pharynx normal Neck: Supple, no JVD, trachea midline Respiratory/Chest: Lungs clear to auscultation, normal breath sounds, no respiratory distress Cardiovascular: +Irregularly irregular, rate controlled. No gallop, no murmur Abdomen/GI: Normal bowel sounds, non-tender, soft Extremities/Musculoskeletal: Normal inspection, no calf tenderness, no pedal edema Neurological/Psych: Alert, normal mood/affect, oriented x 3 Skin: Normal color, warm/dry, no rash Hospital Course 67 y/o male with a history of HTN, HLD, homocysteinemia with h/o DVT on b12 and folic acid, ETOH use, and remote smoking history who presents after being incidentally found to be in a-fib with RVR. Pt had come for a routine colonoscopy and when vitals were checked was tachycardic. EKG revealed a-fib with RVR. No known prior history. New onset Afib with RVR--improving, now rate controlled - Admit to tele. No acute events overnight. Pt in a-fib with HR 70s-90s overnight, 100s-110s in the morning - Cardiology consulted, appreciate recs: Start metoprolol succinate 50 mg and wean off diltiazem drip. If rates are controlled in the afternoon with ambulation, can discharge home. [id number] score 2, should be anticoagulated long-term. Start Eliquis BID. - D/C with metoprolol succinate 50 mg PO qd, Eliquis 5 mg PO BID - D/C dilt drip - Echo shows LVEF 50-55%, no wall motion abnormalities, mild concentric LVH - Rate controlled on metropolol after diltiazem drip stopped, tolerating medication well, ambulating w/o difficulty or tachycardia HTN--stable -Continue metoprolol as above. Cardiology recommends staying on BB even if converts back to sinus rhythm given his left ventricular hypertrophy on echo HLD--stable - Continue heart healthy diet, fish oil, niacin, CoQ10 - Total cholesterol 260, HDL 124, non-HDL 136 Homocysteinemia--stable - Cont B12 and folic acid DVT prophylaxis -Enoxaparin 1 mg/kg SC q12h while inpt, d/c with Eliquis -ROCHELLE baird and SCDs Code Status -Level I, FULL RESUSCITATION STATUS Total Time Spent: Greater than 30 minutes This includes examination of the patient, discharge planning, medication reconciliation, and communication with other providers. Discharge Instructions Please refer to the electronic Patient Visit Report (Discharge Instructions) for additional information. Additional Copies To Kerrie Mcdaniels M.D.
[2017-08-03] MEDS ORDERED: APIXABAN 2.5 MG TAB PO SCH (21:00)
== END 2017-08-03 15:30 | disposition home or self-care (01) | DRG 309 ==
LOC: EDBD 13:06 → C.EDC 13:09 → C.2T 16:33 → ENRESERV 16:52
PROVIDERS: ADMIT Family Medicine; ATTEND Hospitalist
DX: I48.91 Unspecified atrial fibrillation (principal); E72.11 Homocystinuria; E78.5 Hyperlipidemia, unspecified; I10 Essential (primary) hypertension; Z79.82 Long term (current) use of aspirin; Z86.718 Personal history of other venous thrombosis and embolism; Z87.891 Personal history of nicotine dependence; F10.10 Alcohol abuse, uncomplicated

== ENCOUNTER → 2017-08-02 | Day surgery (SDC) | payer BC ==
[2017-07-20 10:06] VITALS: Ht 175.3 cm; Wt 97.7 kg
[~2017-08-02] VITALS: Ht 175.3 cm; Wt 97.7 kg
[~2017-08-02] MED LIST changes: +ACET1CAP16 PO; +APIX1TAB3 PO; +ARGI1CAP2 PO; +ASCA500 PO; +ASPI325T39 PO; +B-COTAB18 PO; +CHOL100010 PO; +COEN90TA PO; +CYAN10005 PO; +FERR1TAB23 PO; -FLV400 PO; +FOLI1TAB8 PO; +NIAC50TA9 PO; +OMEG10007 PO; +SELE1TAB5 PO; -TMPOPS15 IO; +TPRSR/50 PO
[2017-08-02 12:15] VITALS: BP 128/83; PULSE 130; TEMP 36.6
--- NOTE | 2017-08-02 12:49 | Progress Note ---
Progress Note Date of Service Aug 02, 2017. Progress Note Pt is a 67 yo man who is scheduled today for a routine screening colonoscopy with Dr. Hunt. Pt's PMH includes h/o DVT, BPH and glaucoma. Pt denies any history of heart problems. During preop, pt was found to have an irregular heart rate. Pt was put on the monitor and HR was noted to be as high as 139. BP was 128/83. Pt was asymptomatic. 12 lead EKG done showing AFib with RVR at 119bpm. Discussed with Dr. Hunt and decision was made to cancel the colonoscopy due to the new onset Afib with RVR and to send patient to ED to get worked up. ED was called and patient is assigned to room C2.
== END | disposition home or self-care (01) ==
LOC: C.GI 10:49
PROVIDERS: ATTEND Internal Medicine
DX: Z12.11 Encounter for screening for malignant neoplasm of colon (principal); Z53.09 Procedure and treatment not carried out because of other contraindication

== ENCOUNTER → 2018-02-27 | Outpatient (CLI) | payer BC ==
[~2018-02-27] MED LIST changes: -ASCA500 PO; +ASCO100061 PO; +NIAC500T11 PO; -NIAC50TA9 PO; -OMEG10007 PO; +TPRSR/50 PO
[2018-02-27 11:13] LABS: BASO % 0.4 %; BASO ABS # 0.02 K/uL (0-0.2); EOS % 3.4 %; EOS ABS # 0.17 K/uL (0-0.5); HEMATOCRIT 43.8 % (42-52); LYMPH % 28.3 %; MEAN CELL VOLUME 97.6 fL (80-100); MEAN CORPUSCULAR HEMOGLOBIN 33.4 pg (25-34); MEAN CORPUSCULAR HGB CONC 34.2 g/dl (32-36); MEAN PLATELET VOLUME 10.1 fL (7.4-10.4); MONO % 12.1 %; NEUT % 55.8 %; NEUT ABS # 2.75 K/uL (1.4-6.5); PLATELET COUNT 190 K/uL (130-400); RED CELL DISTRIBUTION WIDTH CV 13.8 % (11.5-14.5); RED CELL DISTRIBUTION WIDTH SD 49.3 fL (36.4-46.3); WHITE BLOOD COUNT 4.94 K/uL (4.8-10.8)
[2018-02-27 11:29] LABS: ALBUMIN 3.5 gm/dl (3.4-5.0); ALKALINE PHOSPHATASE 28 U/L (45-117); ALT/SGPT 52 U/L (12-78); AST/SGOT 44 U/L (15-37); BLOOD UREA NITROGEN 16 mg/dl (7-18); CALCIUM 9.1 mg/dl (8.5-10.1); CARBON DIOXIDE 28 mmol/L (21-32); CHOLESTEROL 293 mg/dl (0-200); CREATININE 0.96 mg/dl (0.60-1.40); GLUCOSE 97 mg/dl (70-99); LDL CHOLESTEROL CALCULATED 167 mg/dl; POTASSIUM 4.2 mmol/L (3.5-5.1); SODIUM 138 mmol/L (136-145); TOTAL PROTEIN 7.6 gm/dl (6.4-8.2); TRANSFERRIN 227 mg/dl (200-360)
== END | disposition home or self-care (01) ==
LOC: C.LABBC 08:42
PROVIDERS: ATTEND Nurse Practitioner Adult Health
DX: Z12.5 Encounter for screening for malignant neoplasm of prostate (principal); D50.9 Iron deficiency anemia, unspecified; E78.5 Hyperlipidemia, unspecified; E72.19 Other disorders of sulfur-bearing amino-acid metabolism